=== PATIENT | male | born 1935 | race Caucasian/White ===

== ENCOUNTER 2016-06-22 12:30 | Inpatient (IN) | payer OTHER ==
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
[2016-06-22] MEDS ORDERED: ceFAZolin 2 GM/DEXTROSE 100 ML IV ONE (13:42)
[2016-06-22] MEDS ORDERED: NS 1,000 ML IV ONE (13:42)
[2016-06-22 13:48] LABS: % IMMATURE GRANULYOCYTES 0.3 % (0.0-1.1); ABSOLUTE IMMATURE GRANULOCYTES 0.04 10^3/uL (0.00-0.10); ADD DIFF? NO; ADD MORPH? NO; ADD SCAN? NO; ATYPICAL LYMPHOCYTE FLAG 0 (0-99); FRAGMENT RBC FLAG 0 (0-99); HEMATOCRIT 41.3 % (40.0-51.0); HEMOGLOBIN 14.3 g/dL (13.7-17.5); LEFT SHIFT FLG 10 (0-99); LIPEMIA HEMOLYSIS FLAG 90 (0-99); MEAN CELL HEMOGLOBIN 33.3 pg (27.9-34.1); MEAN CELL HEMOGLOBIN CONCENTR. 34.6 g/dL (32.4-36.7); MEAN PLATELET VOLUME 11.2 fL (8.7-11.7); PLATELET CLUMPS FLAG 0 (0-99); PLATELET COUNT 172 10^3/uL (150-400); RED CELL DISTRIBUTION WIDTH 12.1 % (11.5-15.2)
[2016-06-22 13:53] LABS: ANION GAP 11 mEq/L (8-16); CALCIUM 8.8 mg/dL (8.5-10.4); CARBON DIOXIDE 25 mEq/l (22-31); CHLORIDE 103 mEq/L (97-110); CREATININE 0.7 mg/dL (0.7-1.3); GLOMERULAR FILTRATION RATE > 60; GLUCOSE 122 mg/dL (70-100); POTASSIUM 4.2 mEq/L (3.5-5.2); SODIUM 139 mEq/L (134-144)
[2016-06-22] MEDS ORDERED: ONDANSETRON 4 MG/2 ML VIAL IVP PRN (15:12)
[2016-06-22] MEDS ORDERED: ONDANSETRON DISINTEGRATING 4 MG TAB PO PRN (15:12)
[2016-06-22] MEDS ORDERED: ACETAMINOPHEN 325 MG TAB PO PRN (15:12)
--- NOTE | 2016-06-22 15:31 | GHP ---
[f rep st] HISTORY AND PHYSICAL DATE OF ADMISSION: 06/22/2016 CHIEF COMPLAINT: Weakness, facial redness. HISTORY: This is an 81-year-old male with no significant past medical history who presents with 3-4 days of increasing weakness. He denies any fevers but does admit to having upper respiratory tract i nfection symptoms, especially a runny nose. He states that he has a profound amount of weakness thou gh. He also has myalgias and his bones hurt as well. He has been blowing his nose a lot, and he dev eloped worsening redness over both cheeks. He denies any chest pain or shortness of breath. REVIEW OF SYSTEMS: A 10-point review of systems was obtained and other than stated above is negative . PAST MEDICAL HISTORY: 1. Hyperlipidemia. 2. Hypothyroidism. SOCIAL HISTORY: No smoking. Drinks 2 drinks of alcohol per day. Lives with his . 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 FAMILY HISTORY: Both parents are . PHYSICAL EXAM: VITAL SIGNS: Afebrile. Blood pressure is 159/90. Heart rate 62. Oxygen saturation is 92% on room air. GENERAL: The patient is well developed, in no apparent distress. HEENT: Celeste cteric sclerae. Bilateral erythema over nose and cheeks. No purulent areas noted. NECK: Supple. No thyromegaly. LUNGS: Good effort. Clear to auscultation bilaterally. CARDIOVASCULAR: Regular r ate and rhythm. No murmurs, rubs, or gallops. ABDOMEN: Positive bowel sounds. Soft, nontender, no ndistended. No hepatosplenomegaly. EXTREMITIES: No clubbing, cyanosis, or edema. SKIN: Without r susanna. Warm and intact. NEUROLOGIC: Alert and oriented x3. Moving all 4 extremities equally. PSYCH : Normal mood and affect. LABS: White blood cell count is slightly elevated at 11, hemoglobin 14. Creatinine is normal. ASSESSMENT: This is an 81-year-old male presenting with erysipelas as well as an upper respiratory i nfection. PLAN: 1. Erysipelas. We will treat with IV Ancef. Give this a chance for 24-36 hours before switching ov er to vancomycin. Probably low risk for MRSA. 2. Upper respiratory tract infection. We will check an influenza swab. 3. Hyperlipidemia. 4. Hypothyroidism. /[id number]/MODL
[2016-06-22] MEDS: PRAVASTATIN SODIUM 20 MG TAB PO SCH (23:51)
[2016-06-23] MEDS: CLINDAMYCIN 900 MG/DEXTROSE 50 ML IV SCH ×3 (00:16→13:33)
[2016-06-23] MEDS ORDERED: CLINDAMYCIN 900 MG/DEXTROSE 50 ML IV SCH (06:00)
[2016-06-23 06:04] LABS: % IMMATURE GRANULYOCYTES 0.2 % (0.0-1.1); ABSOLUTE IMMATURE GRANULOCYTES 0.02 10^3/uL (0.00-0.10); ADD DIFF? NO; ADD MORPH? NO; ADD SCAN? YES; FRAGMENT RBC FLAG 0 (0-99); HEMATOCRIT 36.9 % (40.0-51.0); HEMOGLOBIN 12.7 g/dL (13.7-17.5); LEFT SHIFT FLG 10 (0-99); LIPEMIA HEMOLYSIS FLAG 90 (0-99); MEAN CELL HEMOGLOBIN 32.6 pg (27.9-34.1); MEAN CELL HEMOGLOBIN CONCENTR. 34.4 g/dL (32.4-36.7); MEAN CELL VOLUME 94.9 fL (81.5-99.8); MEAN PLATELET VOLUME 10.9 fL (8.7-11.7); PLATELET CLUMPS FLAG 0 (0-99); PLATELET COUNT 170 10^3/uL (150-400); RED BLOOD CELL COUNT 3.89 10^6/uL (4.40-6.38); RED CELL DISTRIBUTION WIDTH 12.1 % (11.5-15.2)
[2016-06-23] MEDS: LEVOTHYROXINE 88 MCG TAB PO SCH (06:07)
[2016-06-23 06:17] LABS: ATYPICAL LYMPHOCYTE FLAG 140 (0-99)
[2016-06-23 06:19] LABS: ALANINE AMINOTRANSFERASE 46 IU/L (21-72); ALBUMIN 2.8 g/dL (3.5-5.0); ALKALINE PHOSPHATASE 69 IU/L (38-126); ANION GAP 12 mEq/L (8-16); ASPARTATE AMINOTRANSFERASE 38 IU/L (17-59); BILIRUBIN,TOTAL 0.4 mg/dL (0.1-1.4); CARBON DIOXIDE 23 mEq/l (22-31); CHLORIDE 104 mEq/L (97-110); CREATININE 0.6 mg/dL (0.7-1.3); GLOMERULAR FILTRATION RATE > 60; GLUCOSE 119 mg/dL (70-100); POTASSIUM 3.8 mEq/L (3.5-5.2); SODIUM 139 mEq/L (134-144)
[2016-06-23 06:57] LABS: SCAN NEGATIVE
[2016-06-23] MEDS: ENOXAPARIN 40 MG/0.4 ML SYR SC SCH (07:44)
--- NOTE | 2016-06-23 11:19 | HOSPPROG ---
Hospitalist Progress Note Assessment/Plan: patient is an 81-year-old male who presented the emergency room with increasing weakness over the past few days, with myalgias. Patient had pain in his joints. He had significant redness over his cheeks. Today is my first encounter with the patient/reviewed his chart. Discussed his care with Dr Woods who will see him later today. #. Erysipelas * on Ancef and clindamycin * per patient's , it is less red #. Recent upper respiratory infection * negative flu #. Alcohol use * 2 drinks/day * ordered white wine with dinner #. HLD: statin therapy #. Hypothyroidism: Synthroid #. DVT prophylaxis: LMWH #. Plan: will wait input from ID team, patient is very anxious to be discharged soon/ explained to him and his , would like to continue iv abx overnight and get further input from Dr Woods. Subjective: Robby wants to go home soon. Has no complaints/ no fever, no body aches. Objective: Vital Signs Temp Pulse Resp BP Pulse Ox 36.6 C 56 L 16 155/90 H 94 06/23/16 03:40 06/23/16 07:57 06/23/16 07:57 06/23/16 07:57 06/23/16 07:57 Laboratory Results 06/23/16 05:52 06/23/16 05:52 06/22/16 06/23/16 06/24/16 05:59 05:59 05:59 Intake Total 1200 Balance 1200 - Physical Exam Constitutional: no apparent distress, appears nourished, not in pain Eyes: PERRL Ears, Nose, Mouth, Throat: moist mucous membranes, hearing normal Cardiovascular: regular rate and rhythym Respiratory: no respiratory distress, no rales or rhonchi Gastrointestinal: normoactive bowel sounds Skin: other (both cheek areas, nose area with erythema/ has some small scabbing areas on the nose/ warm. ) Neurologic: AAOx3 Psychiatric: interacting appropriately, anxious Lymph, Heme, Immunologic: No no supraclavicular LAD, No lymphadenopathy ICD10 Worksheet Patient Problems: Problems Problem Status Diagnosed Erysipelas Acute
[2016-06-23] MEDS ORDERED: WHITE WINE 120 ML BOTTLE PO SCH (18:00)
[2016-06-23] MEDS ORDERED: NON-FORMULARY NEW DRUG (Simvastatin [Simvastatin] 10 MG) PO SCH (21:00)
[2016-06-23] MEDS: PRAVASTATIN SODIUM 20 MG TAB PO SCH (21:19)
--- NOTE | 2016-06-23 21:35 | GCON ---
[f rep st] CONSULTATION INFECTIOUS DISEASE CONSULTATION DATE OF CONSULTATION: 06/23/2016 REFERRING PHYSICIAN: Robi Cabrera MD REASON FOR CONSULTATION: Erysipelas. HISTORY OF PRESENT ILLNESS: An 81-year-old male with minimal past medical history who reports that s imelda his birthday [birth year] he has been feeling generalized malaise and subsequently noticed a ra pid development of facial redness. Patient presented to the emergency room on 06/22/2016 for evaluat ion and was found to have erysipelas. The patient denies associated fevers, specific injury, althoug h he states that his thinks it is due to him causing excoriations from blowing his nose. The pa tient has not taken antibiotics for many years. He cannot remember the last time he received antibio tics. Prior to the onset of this illness, the patient describes a URI with productive coughing that is blood tinged and intermittent epistaxis. He denies specific sick contacts. REVIEW OF SYSTEMS: A complete 10-point review of systems was performed and is negative except as men tioned in HPI. PAST MEDICAL HISTORY: Hyperlipidemia, hypothyroidism. SOCIAL HISTORY: The patient is a nonsmoker. He drinks alcohol daily. He lives with his . He i s originally from the [facility]. They moved here 5-6 years ago to be [facility]. 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 FAMILY HISTORY: Reviewed and noncontributory. ALLERGIES: NKDA. MEDICATIONS: Cefazolin 1 g IV q.8 started 06/22/2016 and clindamycin 900 mg IV q.8. Enoxaparin 40 s ubcu daily, pravastatin 20 mg q.h.s. and levothyroxine 88 mcg daily. PHYSICAL EXAM: VITAL SIGNS: Blood pressure 154/88, heart rate 60, respiratory rate 16, saturation 9 7% on room air, temperature 36.6. He has been afebrile throughout the hospital course. 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 HEENT: He has obvious erythema across his nasolabial folds and bilateral cheeks with underlying pustules and a few bulla on the left . One larger area of drainage on the left face was cultured personally by me. Surprisingly minimal tenderness to palpation. Extraocular muscles are intact. Cranial nerves are intact. Oropharynx sli ghtly dry mucous membranes. Fair dentition. NECK: Supple. No lymphadenopathy along the neck or pr eauricular region. CARDIOVASCULAR: Regular rate and rhythm. No murmurs. CHEST: Clear to ausculta tion bilaterally. ABDOMEN: Soft, nontender. Bowel sounds are present. EXTREMITIES: No clubbing, cyanosis, or edema. NEUROLOGIC: He is alert and oriented x4, conversive. Motor is grossly intact. LABORATORY: White count on admission 11.6 and today 9.0. Hematocrit 36, platelets 170. Creatinine 0.6. LFTs within normal limits. Albumin 2.8. Influenza PCR was negative. No blood cultures were o btained on admission. No imaging. ASSESSMENT AND PLAN: This is an 81-year-old male with minimal past medical history who presents with erythema across the face consistent with cellulitis versus erysipelas. Underlying small pustules le ss typical for erysipelas. The patient has minimal risk factors for MRSA, and therefore, I believe i t is reasonable to continue treatment with Ancef as monotherapy. Would discontinue high-dose clindam ycin. Will follow up on wound culture obtained personally by me. We will continue to follow [facility] [place]. Hopefully tomorrow, the patient will have enough clinical improvement to consider discharge to home. Thank you for this consultation. We will continue to follow on a daily basis. /[id number]/MODL
[2016-06-24] MEDS: LEVOTHYROXINE 88 MCG TAB PO SCH (05:38)
[2016-06-24] MEDS: ENOXAPARIN 40 MG/0.4 ML SYR SC SCH (07:44)
[2016-06-24 08:25] VITALS: BP 146/78; PULSE 66; RESP 20; TEMP 97.2; O2SAT 94
--- NOTE | 2016-06-24 11:08 | PCMIDPN ---
Assessment/Plan: # Facial erysipelas, clinically improved today with erythema having a more ready appearance and recession from prior distribution. Clindamycin was discontinued yesterday and patient has been on Ancef alone, therefore responding to therapy directed against Streptococcus and MSSA. Will plan a couple more days of antibiotics for, will transition patient to ceftriaxone for ease of administration as an outpatient. --give 1st dose ceftriaxone 1 g before discharge and then follow up in infusion center tomorrow around 2 o'clock. --I will re-evaluate him in the infusion center tomorrow and assess for transition to p.o. antibiotics --recommended continued elevation of his head when sleeping --leave peripheral IV in place if still within 72 hours of placement Antibiotics, # 2 Cefazolin 1 g IV Q 8 Microbiology No blood cultures were collected 06/23 wound culture from face: Gram stain negative for organism Subjective: Patient feeling improved, wants to go home. Denies diarrhea or other side effect from antibiotics Thought the food was great at [facility] Objective: Vital Signs Temp Pulse Resp BP Pulse Ox 36.2 C 66 20 146/78 H 94 06/24/16 08:19 06/24/16 08:19 06/24/16 08:19 06/24/16 08:19 06/24/16 08:19 Laboratory Results 06/23/16 05:52 06/23/16 05:52 06/23/16 06/24/16 06/25/16 05:59 05:59 05:59 Intake Total 1200 Balance 1200 - Physical Exam General Appearance: alert, no apparent distress Skin: erythema (Over nasolabial folds and cheeks bilaterally, butterfly distribution, ready your in appearance today, with increase crusting at the nasolabial fold and lateral cheek bones. Noticeable wrinkling today suggestive of decreased swelling) Neuro/Psych: alert, normal mood/affect, oriented x 3 - Time Spent With Patient Time Spent with Patient: greater than 35 minutes (spent with this patient today , reviewing record, medical decision-making, and speaking with other providers.) Time Spent with Patient: Greater than 35 minutes spent on this patients care, greater than 50% of time spent counseling, educating, and coordinating care regarding the above mentioned plan. ICD10 Worksheet Patient Problems: Problems Problem Status Diagnosed Erysipelas Acute
--- NOTE | 2016-06-24 11:14 | HOSPPROG ---
Hospitalist Progress Note Assessment/Plan: patient is an 81-year-old male who presented the emergency room with increasing weakness over the past few days, with myalgias. Patient had pain in his joints. He had significant redness over his cheeks. #. Erysipelas/ facial cellulitis * on Ancef and clindamycin/change to ceftriaxone * will come to for iv abx * improving #. Recent upper respiratory infection * negative flu #. Alcohol use * 2 drinks/day * no s/sx of withdrawal #. HLD: statin therapy #. Hypothyroidism: Synthroid #. DVT prophylaxis: LMWH #. Plan:dc today after he receives Ceftriaxone. Subjective: Robby is feeling well/ no complaints. Objective: Vital Signs Temp Pulse Resp BP Pulse Ox 36.2 C 66 20 146/78 H 94 06/24/16 08:19 06/24/16 08:19 06/24/16 08:19 06/24/16 08:19 06/24/16 08:19 Laboratory Results 06/23/16 05:52 06/23/16 05:52 06/23/16 06/24/16 06/25/16 05:59 05:59 05:59 Intake Total 1200 Balance 1200 - Physical Exam Constitutional: no apparent distress, appears nourished, not in pain Eyes: PERRL Ears, Nose, Mouth, Throat: hearing normal Cardiovascular: regular rate and rhythym Respiratory: no respiratory distress Gastrointestinal: normoactive bowel sounds Skin: other (continues to have redness on nose and cheeks, less swelling, with some wrinkling on his cheeks, has multiple pustule areas that are drying up) Musculoskeletal: no muscle tenderness Neurologic: AAOx3 Psychiatric: interacting appropriately, not anxious ICD10 Worksheet Patient Problems: Problems Problem Status Diagnosed Erysipelas Acute
--- NOTE | 2016-06-24 13:27 | GDS ---
[ rep st] DISCHARGE SUMMARY DISCHARGE DIAGNOSES: 1. Facial erysipelas. 2. Recent upper respiratory infection. 3. Alcohol use. 4. Hyperlipidemia. 5. Hypothyroidism. CONSULTATIONS: During this stay: Dr. Helena Woods. HISTORY: Briefly, the patient is an 81-year-old male without any significant past medical history. He presented to the emergency room with 3-4 days of increasing weakness. He also has noted that he h as worsening redness to his facial and cheek areas with associated swelling. He was admitted for [facility] care. HOSPITAL COURSE PER PROBLEM: 1. Facial erysipelas: He is improved today with erythema less and less swelling. He was on clindam ycin, that was discontinued yesterday, and on Ancef alone, he will be discharged and come to [address] [place] [address] Helena Woods will check on him tomorrow to discuss the duration of his treatment. Recommended that he sleep with his head of the bed up to help with the swelling. 2. Recent upper respiratory infection. Negative for the influenza. 3. Alcohol use. He has 2 drinks a day. He had no signs or symptoms of any type of withdrawal. 4. Hyperlipidemia, on statin therapy. 5. Hypothyroidism, on Synthroid. PENDING LABS: None. CONDITION AT DISCHARGE: Stable. Blood pressure is 146/78, heart rate 66. Respiratory rate is 20. O2 saturation on room air 94%. Temperature 36.2 Celsius. MEDICATIONS AT DISCHARGE: Please see the EMR. DISCHARGE INSTRUCTIONS: 1. To come to [facility] for IV antibiotics. 2. Dr. Helena Woods will follow up with him and evaluate his face. 3. If he develops any fever, chills, chest pain, shortness of breath, or worsening swelling to his acial area, to return to the ER. Greater than 30 minutes discharging and coordinating care. /[id number]/MODL
== END 2016-06-24 15:18 | disposition home or self-care (01) | DRG 603 ==
LOC: F3E 15:56
PROVIDERS: ADMIT Internal Medicine; ATTEND Hospitalist
DX: A46 Erysipelas (principal); J06.9 Acute upper respiratory infection, unspecified; E03.9 Hypothyroidism, unspecified; E78.5 Hyperlipidemia, unspecified; F10.99 Alcohol use, unspecified with unspecified alcohol-induced disorder
CPT/HCPCS: 96365; 97161-GP; 97165-GO; 97535-GO; G8978-GP-CI; G8979-GP-CI; G8980-GP-CI; G8987-GO-CI; G8988-GO-CH; G8988-GO-CI; G8989-GO-CI; J0690; J0696; J1650

== ENCOUNTER 2016-08-30 12:11 | Emergency (ER) | payer OTHER ==
[2016-08-30 12:18] VITALS: RESP 16
[2016-08-30] MEDS ORDERED: NS 1,000 ML IV ONE (12:22)
[2016-08-30 12:45] LABS: % IMMATURE GRANULYOCYTES 0.2 % (0.0-1.1); ABSOLUTE IMMATURE GRANULOCYTES 0.01 10^3/uL (0.00-0.10); ADD DIFF? NO; ADD MORPH? NO; ADD SCAN? NO; ATYPICAL LYMPHOCYTE FLAG 10 (0-99); FRAGMENT RBC FLAG 0 (0-99); HEMATOCRIT 45.3 % (40.0-51.0); HEMOGLOBIN 15.2 g/dL (13.7-17.5); LEFT SHIFT FLG 0 (0-99); LIPEMIA HEMOLYSIS FLAG 80 (0-99); MEAN CELL HEMOGLOBIN 32.5 pg (27.9-34.1); MEAN CELL HEMOGLOBIN CONCENTR. 33.6 g/dL (32.4-36.7); MEAN CELL VOLUME 96.8 fL (81.5-99.8); MEAN PLATELET VOLUME 10.6 fL (8.7-11.7); PLATELET CLUMPS FLAG 10 (0-99); PLATELET COUNT 171 10^3/uL (150-400); RED BLOOD CELL COUNT 4.68 10^6/uL (4.40-6.38); RED CELL DISTRIBUTION WIDTH 12.6 % (11.5-15.2)
--- NOTE | 2016-08-30 12:45 | EDPHY ---
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 The patient describes fairly typical presyncope and orthostasis. He had no chest pain or shortness of breath. He had no focal numbness or weakness. The patient had no symptoms of vertigo or ataxia. The patient was seen at his primary care provider's office. He does have a remote history of coronary artery disease diagnosed with a 50% blockage on angiogram 1 year ago. He was sent to the ED for further evaluation. The patient currently is asymptomatic. He states he would very much like to be discharged from the emergency department so he can "enjoy the beautiful day." REVIEW OF SYSTEMS: A comprehensive 10 point review of systems is otherwise negative aside from elements mentioned in the history of present illness. Source: Patient Exam Limitations: No limitations - Medical/Surgical History Hx Asthma: No Hx Chronic Respiratory Disease: No Hx Diabetes: No Hx Cardiac Disease: No Hx Renal Disease: No Hx Cirrhosis: No Hx Alcoholism: No Hx HIV/AIDS: No Hx Splenectomy or Spleen Trauma: No Other PMH: R HIP SURGERY - Social History Smoking Status: Never smoked - Physical Exam Exam: General Appearance: Alert, no distress Eyes: Pupils equal and round no pallor or injection ENT, Mouth: Mucous membranes moist Neck: No bruit Respiratory: There are no retractions, lungs are clear to auscultation Cardiovascular: Regular rate and rhythm Gastrointestinal: Abdomen is soft and nontender, no masses, bowel sounds normal Neurological: A&O, normal motor function, normal sensory exam, normal cranial nerves Skin: Warm and dry, no rashes Musculoskeletal: Neck is supple nontender Extremities: symmetrical, full range of motion Constitutional: Initial Vital Signs Temperature (C) 36.3 C 08/30/16 12:14 Heart Rate 58 L 08/30/16 12:14 Respiratory Rate 16 08/30/16 12:14 Blood Pressure 176/85 H 08/30/16 12:14 O2 Sat (%) 98 08/30/16 12:14 O2 Delivery Mode Room Air Allergies/Adverse Reactions: No Known Allergies Allergy (Verified 06/22/16 12:36) Home Medications: Medication Instructions Recorded Levothyroxine [Synthroid 88 mcg 88 mcg PO DAILY06 06/22/16 (*)] SIMVASTATIN 10 mg PO HS 06/22/16 Medical Decision Making - Diagnostics EKG Interpretation: EKG: Complete interpretation has been separately recorded in the [facility] archive. Summary impression: Sinus, rate 48 ED Course/Re-evaluation: The patient presents to the ED for evaluation of resolved presyncope following heavy activity today. The patient's EKG demonstrates no evidence of ischemia. The patient's vital signs are stable and he has no evidence of orthostasis. Patient had an IV established. He received a L of normal saline. He was placed on a court recording monitor. The patient has a normal neurologic examination upon arrival. The patient denies any symptoms of focal numbness, weakness, aphasia or dysarthria. Re-evaluation at 1:30 p.m.: Vital signs remained stable, neurologic examination is normal, no ectopy observed on monitoring in the ED. No significant vital sign abnormalities. The patient's laboratory studies are within normal limits. The patient is quite anxious to be discharged home. He does understand that we cannot fully exclude progression of his underlying coronary artery disease. The patient is comfortable returning to the ED for any recurrent chest pain, shortness of breath, lightheadedness or other concerns. The patient will schedule a follow- up appointment with his regular privacy director for a recheck in the next week. Additionally, the patient has been instructed to return to the ED for the development of any acute neurologic symptoms such as ataxia, aphasia, paresthesias or weakness. Differential Diagnosis: Differential diagnosis considered includes acute coronary syndrome, dehydration , metabolic abnormality, vasovagal episode, stroke, TIA - Data Points Laboratory Results: Laboratory Results 08/30/16 12:30 08/30/16 12:30 08/30/16 08/30/16 12:30 12:30 WBC 4.92 10^3/uL 10^3/uL (3.80-9.50) RBC 4.68 10^6/uL 10^6/uL (4.40-6.38) Hgb 15.2 g/dL g/dL (13.7-17.5) Hct 45.3 % % (40.0-51.0) MCV 96.8 fL fL (81.5-99.8) MCH 32.5 pg pg (27.9-34.1) MCHC 33.6 g/dL g/dL (32.4-36.7) RDW 12.6 % % (11.5-15.2) Plt Count 171 10^3/uL 10^3/uL (150-400) MPV 10.6 fL fL (8.7-11.7) Neut % (Auto) 51.4 % % (39.3-74.2) Lymph % (Auto) 31.1 % % (15.0-45.0) Vance % (Auto) 10.6 % % (4.5-13.0) Eos % (Auto) 5.9 % % (0.6-7.6) Baso % (Auto) 0.8 % % (0.3-1.7) Nucleat RBC Rel Count 0.0 % % (0.0-0.2) Absolute Neuts (auto) 2.53 10^3/uL 10^3/uL (1.70-6.50) Absolute Lymphs (auto) 1.53 10^3/uL 10^3/uL (1.00-3.00) Absolute Monos (auto) 0.52 10^3/uL 10^3/uL (0.30-0.80) Absolute Eos (auto) 0.29 10^3/uL 10^3/uL (0.03-0.40) Absolute Basos (auto) 0.04 10^3/uL 10^3/uL (0.02-0.10) Absolute Nucleated RBC 0.00 10^3/uL 10^3/uL (0-0.01) Immature Gran % 0.2 % % (0.0-1.1) Immature Gran # 0.01 10^3/uL 10^3/uL (0.00-0.10) Sodium 140 mEq/L mEq/L (134-144) Potassium 4.7 mEq/L mEq/L (3.5-5.2) Chloride 104 mEq/L mEq/L (97-110) Carbon Dioxide 26 mEq/l mEq/l (22-31) Anion Gap 10 mEq/L mEq/L (8-16) BUN 16 mg/dL mg/dL (7-23) Creatinine 0.7 mg/dL mg/dL (0.7-1.3) Estimated GFR > 60 Glucose 84 mg/dL mg/dL (70-100) Calcium 9.7 mg/dL mg/dL (8.5-10.4) Troponin I < 0.012 ng/mL ng/mL (0-0.034) Medications Given: Discontinued Medications Sodium Chloride (Ns) 1,000 mls @ 0 mls/hr IV ONCE ONE PRN Reason: Wide Open Stop: 08/30/16 12:23 Last Admin: 08/30/16 12:53 Dose: 1,000 mls Departure - Departure Disposition: Home, Routine, Self-Care Clinical Impression: Vasovagal episode Condition: Good Instructions: Near Syncope (ED) Additional Instructions: 1. Please increase your fluid intake today as mild dehydration may have contributed your symptoms today. 2. Please return to the ED immediately for any chest pain, shortness of breath, numbness, weakness, difficulty with speech or ambulation. 3. Please schedule a follow-up appointment with your regular privacy director for consideration of a follow-up stress test. 4. Please follow up as scheduled with your primary care provider. Referrals: Kirk Moore DO [Primary Care Provider] - As per Instructions
[2016-08-30 13:01] LABS: ANION GAP 10 mEq/L (8-16); CALCIUM 9.7 mg/dL (8.5-10.4); CARBON DIOXIDE 26 mEq/l (22-31); CHLORIDE 104 mEq/L (97-110); CREATININE 0.7 mg/dL (0.7-1.3); GLOMERULAR FILTRATION RATE > 60; GLUCOSE 84 mg/dL (70-100); POTASSIUM 4.7 mEq/L (3.5-5.2); SODIUM 140 mEq/L (134-144)
--- NOTE | 2016-08-30 13:04 | CPEKG ---
Heart Rate: 48 RR Interval: 1250 P-R Interval: 216 QRSD Interval: 88 QT Interval: 464 QTC Interval: 415 P [place]: 15 QRS [place]: 21 T Wave [place]: 5 EKG Severity - OTHERWISE NORMAL ECG - EKG Impression: SINUS BRADYCARDIA Electronically Signed By: Sean Santos 30-Aug-2016 13:05:20
[2016-08-30 13:12] LABS: TROPONIN I < 0.012 ng/mL (0-0.034)
[2016-08-30 13:49] VITALS: BP 174/96; PULSE 47; TEMP 97.9; O2SAT 94
== END 2016-08-30 13:48 | disposition home or self-care (01) ==
DX: R55 Syncope and collapse (principal)

== ENCOUNTER 2017-04-20 23:58 | Emergency (ER) | payer OTHER ==
[2017-04-21 00:07] VITALS: RESP 16
[2017-04-21] MEDS ORDERED: LIDOCAINE 2% JELLY 20 ML (UROJECT) ONE ×2 (00:37→06:46)
[2017-04-21] MEDS ORDERED: LIDOCAINE 2% JELLY 20 ML (UROJECT) UR ONE (00:52)
[2017-04-21 01:16] LABS: COLOR YELLOW; LEUKOCYTE ESTERASE,URINE NEGATIVE (NEGATIVE); NITRITE,URINE NEGATIVE (NEGATIVE)
[2017-04-21 01:17] LABS: MUCUS TRACE /lpf (NONE-1+)
[2017-04-21 01:24] LABS: % IMMATURE GRANULYOCYTES 0.3 % (0.0-1.1); ABSOLUTE IMMATURE GRANULOCYTES 0.03 10^3/uL (0.00-0.10); ADD DIFF? NO; ADD MORPH? NO; ADD SCAN? NO; ATYPICAL LYMPHOCYTE FLAG 0 (0-99); FRAGMENT RBC FLAG 0 (0-99); HEMATOCRIT 43.5 % (40.0-51.0); HEMOGLOBIN 15.4 g/dL (13.7-17.5); LEFT SHIFT FLG 0 (0-99); LIPEMIA HEMOLYSIS FLAG 90 (0-99); MEAN CELL HEMOGLOBIN 33.8 pg (27.9-34.1); MEAN CELL HEMOGLOBIN CONCENTR. 35.4 g/dL (32.4-36.7); MEAN CELL VOLUME 95.6 fL (81.5-99.8); MEAN PLATELET VOLUME 10.7 fL (8.7-11.7); PLATELET CLUMPS FLAG 10 (0-99); PLATELET COUNT 180 10^3/uL (150-400); RED BLOOD CELL COUNT 4.55 10^6/uL (4.40-6.38); RED CELL DISTRIBUTION WIDTH 11.8 % (11.5-15.2)
[2017-04-21 01:34] LABS: ANION GAP 15 mEq/L (8-16); CALCIUM 9.6 mg/dL (8.5-10.4); CARBON DIOXIDE 24 mEq/l (22-31); CHLORIDE 103 mEq/L (97-110); GLOMERULAR FILTRATION RATE > 60; GLUCOSE 107 mg/dL (70-100); POTASSIUM 4.4 mEq/L (3.5-5.2); SODIUM 142 mEq/L (134-144)
--- NOTE | 2017-04-21 01:34 | EDPHY ---
H & P Stated Complaint: unable to urinate HPI/ROS: Chief complaint: Unable to urinate History of present illness: This is an 81-year-old male who presents to the emergency department with inability urinate. He reports the onset of symptoms this afternoon around 4:00 p.m. since then he has not been able to urinate at all. He reports increasing discomfort. He has never had a problem like this in the past. He denies potential precipitating factors such as trauma, infection, you medications Excedrin. Further he states he has had abnormal bowel movements today with multiple small bowel movements. He denies other associated signs or symptoms including no fevers or chills, no nausea or vomiting, no diarrhea. Review of systems: A 10 point review of systems was obtained and other than described above was negative - Personal History Current Tetanus/Diphtheria Vaccine: Yes Current Tetanus Diphtheria and Acellular Pertussis (TDAP): Yes - Medical/Surgical History Hx Asthma: No Hx Chronic Respiratory Disease: No Hx Diabetes: No Hx Cardiac Disease: No Hx Renal Disease: No Hx Cirrhosis: No Hx Alcoholism: No Hx HIV/AIDS: No Hx Splenectomy or Spleen Trauma: No Other PMH: R HIP SURGERY - Social History Smoking Status: Never smoked - Physical Exam Exam: General Appearance: Alert, nontoxic. Eyes: Pupils equal and round no pallor or injection. ENT, Mouth: Mucous membranes moist. Respiratory: There are no retractions, lungs are clear to auscultation. Cardiovascular: Regular rate and rhythm. Gastrointestinal: Abdomen is soft and non tender, no masses, bowel sounds normal. Neurological: Alert and oriented x4. Strength and sensation intact and symmetrical. Skin: Warm and dry, no rashes. Musculoskeletal: Neck is supple non tender. Extremities are symmetrical, full range of motion. Psychiatric: Patient is oriented X 3, there is no agitation. Constitutional: Initial Vital Signs Temperature (C) 36.9 C 04/21/17 00:06 Heart Rate 61 04/21/17 00:06 Respiratory Rate 16 04/21/17 00:06 Blood Pressure 181/87 H 04/21/17 00:06 O2 Sat (%) 97 04/21/17 00:06 O2 Delivery Mode Room Air Allergies/Adverse Reactions: No Known Allergies Allergy (Verified 06/22/16 12:36) Home Medications: Medication Instructions Recorded Levothyroxine [Synthroid 88 mcg 88 mcg PO DAILY06 06/22/16 (*)] SIMVASTATIN 10 mg PO HS 06/22/16 Medical Decision Making - Diagnostics Imaging: Discussed imaging studies w/ bilingual call center representative Radiologist ED Course/Re-evaluation: Patient seen under the supervision of my secondary supervising physician Dr. Scotty Joe. Patient presents to the emergency department for inability to urinate. Bladder scan initially does not show significant amount of urine in the bladder. Godoy catheter is placed with minimal return of urine although improvement in patient's symptoms. Further studies are obtained including CBC, chemistry and urinalysis which are largely unremarkable. CT scan is obtained which does show a large right-sided kidney stone of approximately 6 mm. This is likely the cause of patient's symptoms. The catheter was removed. He continues to feel well. I have discussed the importance of close follow-up with Urology for continued evaluation and care. Referral information is given. Strict return precautions are given. Patient voiced understanding and agreement with plan. Differential Diagnosis: Obstructive uropathy a of multiple etiologies including BPH, stone as well as uncomplicated stone, urinary tract infection, intra-abdominal or pelvic mass - Data Points Laboratory Results: Laboratory Results 04/21/17 01:07 04/21/17 01:07 Medications Given: Discontinued Medications Lidocaine (Uroject Lidocaine 2% Jelly) 20 ml UR EDNOW ONE Stop: 04/21/17 00:53 Last Admin: 04/21/17 00:52 Dose: 20 ml Departure - Departure Disposition: Home, Routine, Self-Care Clinical Impression: Kidney stone on right side Condition: Good Instructions: Kidney Stones (ED) Additional Instructions: Follow-up with a urologist on Sunday or Sunday for recheck Follow-up with Dr. Singh Herbert of surgery to check your iliac artery If symptoms worsen or new symptoms develop return to the emergency room for recheck Referrals: Kirk Moore DO [Primary Care Provider] - As per Instructions Kirk Agosto MD [Medical Doctor] - As per Instructions Gulshan Herbert MD [Medical Doctor] - As per Instructions
[2017-04-21] MEDS ORDERED: IOPAMIDOL (ISOVUE-300) 100 ML BTL ONE (01:35)
[2017-04-21 03:17] VITALS: BP 142/99; PULSE 81; TEMP 97.9; O2SAT 92
== END 2017-04-21 03:17 | disposition home or self-care (01) ==
PROC: 0T9B70Z Drainage of Bladder with Drainage Device, Via Natural or Artificial Opening (ICD-10-PCS; principal; 2017-04-20)
DX: N20.0 Calculus of kidney (principal)
CPT/HCPCS: 51702; 74177; 99285; Q9967

== ENCOUNTER → 2017-05-08 | Outpatient (CLI) | payer OTHER | LOC: CIMAGING 14:18 | PROVIDERS: ATTEND Urology | DX: N20.1 Calculus of ureter (principal) | CPT/HCPCS: 74000-PO ==